=== PATIENT | male | born 1980 | race Caucasian/White ===

== ENCOUNTER 2022-12-21 08:39 | Emergency (ER) | payer OTHER, BC, SELFPAY ==
[2022-12-21 08:45] VITALS: BP 156/99; PULSE 91; RESP 16; TEMP 36; O2SAT 98; BMI 37.7
[2022-12-21] MEDS: ACETAMINOPHEN 500 MG TABLET 1000 MG PO (09:20)
--- NOTE | 2022-12-21 09:33 | ED.UPPEXIN ---
HPI - Extremity Injury (Upper) General Date Seen: 12/21/22 Chief Complaint: Extremity Pain/Injury, Upper Stated Complaint: Sliced R hand Time Seen by Provider: 12/21/22 08:40 Source: patient Mode of arrival: ambulatory Limitations: no limitations History of Present Illness HPI narrative: Patient is a 42-year-old gentleman who presents here with an injury to his right hand, he was at work any bump this against the braiser, small laceration is noted over the dorsum of the hand overlying just proximal to his 3rd MCP joint, he tells me has full motion of his hand, there is no numbness tingling or weakness, he thinks his tetanus shot is up-to-date, but given the injury thought it was best he came here, to get it looked at and possibly sewed up. complaint: injury to: right Onset (ago): minute(s) Other injuries: none Hand dominance: Right Place: work Severity: mild Relieving factors: none Exacerbating factors: none Context: direct blow Associated symptoms: denies other symptoms Related Data Home Medications Medication Instructions Recorded Confirmed sertraline 50 mg tablet mg PO 12/21/22 Allergies Allergy/AdvReac Type Severity Reaction Status Date / Time No Known Drug Allergies Allergy Verified 12/21/22 08:47 Review of Systems Status of ROS: Reports: 6 or more systems reviewed and unremarkable except as noted in History and below Exam Narrative: Exam Narrative: On examination he is in no apparent distress he is pleasant alert there is a half-ponce type laceration of approximately 2 cm 2.5 cm overlying and just proximal to his 3rd MCP joint of the dorsum of his hand, he has full extension of his MCPs and fingers, to resistance, PIP flexion and D IP flexion is normal and MCP flexion normal to abduction adduction are normal, and there is no evidence of any altered sensation noted over the 2nd through 4th fingers. Was normal. No tenderness to palpation over his hands I do not suspect a fracture. We will put some let on here for a few minutes, then I will numb it we will irrigated out well, Wound is closed with 3 simple 4-0 sutures, Prolene, there is no injury to the low structures below the dermal layer, in fact the laceration only extended into the dermal. Bleeding was minimal less than 1 mL, bacitracin dry dressing applied, no evidence of foreign body, or damage tolerated well Post repair, neurovascular status intact in the fingers, Const: Vital Signs, click to edit/add: Vital Signs - 24 hr 12/21/22 08:45 Temperature 96.8 F L Pulse Rate [Left P ulse Oximeter] 91 Respiratory Rate 16 Blood Pressure [Le ft Upper Arm] 156/99 H Pulse Oximetry 98 Oxygen Delivery Me thod Room Air Documenting provider has reviewed patient's vital signs: yes Course Vital Signs Vital signs: Initial Vital Signs Temperature 96.8 F L 12/21/22 08:45 Temperature Source Temporal Artery Scan 12/21/22 08:45 Pulse Rate 91 12/21/22 08:45 Pulse Rhythm Regular 12/21/22 08:45 Pulse Strength 3+ Normal 12/21/22 08:45 Respiratory Rate 16 12/21/22 08:45 Blood Pressure 156/99 H 12/21/22 08:45 Blood Pressure Mean 118 12/21/22 08:45 Blood Pressure Position Sitting 12/21/22 08:45 Pulse Oximetry 98 12/21/22 08:45 Oxygen Delivery Method Room Air 12/21/22 08:45 Vital Signs Temperature 96.8 F L 12/21/22 08:45 Pulse Rate 91 12/21/22 08:45 Respiratory Rate 16 12/21/22 08:45 Blood Pressure 156/99 H 12/21/22 08:45 Pulse Oximetry 98 12/21/22 08:45 Oxygen Delivery Method Room Air 12/21/22 08:45 Temperature 96.8 F L 12/21/22 08:45 Pulse Rate 91 12/21/22 08:45 Respiratory Rate 16 12/21/22 08:45 Blood Pressure 156/99 H 12/21/22 08:45 Pulse Oximetry 98 12/21/22 08:45 Oxygen Delivery Method Room Air 12/21/22 08:45 Discharge Plan Discharge Clinical Impression: Laceration Patient Disposition: Home, Self-Care Condition: Stable Instructions: Care For Your Stitches (ED), Laceration (ED) Additional Instructions: Home, rest, bacitracin daily on the wound, I would bandage it probably for the 1st 5 or 6 days, avoid immersing and water, showering okay, no dishes, increasing redness swelling or pain he should come back and be seen this is infection, sutures should come out in 10 days at the [facility]. Prescriptions: No Action sertraline 50 mg tablet PO Follow Up/Referrals: Kristofer Lewis MD [Referring] - Stand Alone Forms: [employer] Info Instructions
== END 2022-12-21 10:41 | disposition home or self-care (01) ==
PROVIDERS: Emergency Provider Family Medicine; PCP Family Medicine
DX: S61.212A Laceration without foreign body of right middle finger without damage to nail, initial encounter (principal); W26.9XXA Contact with unspecified sharp object(s), initial encounter
CPT/HCPCS: 12001; 99283; A9270